=== PATIENT | male | born 1960 | race Two or more races ===

== ENCOUNTER → 2016-07-26 | Outpatient (CLI) | payer OTHER ==
--- NOTE | 2016-07-26 15:51 | CR ---
EXAMINATION: Right shoulder HISTORY: Pain COMPARISON: None TECHNIQUE: 3 views FINDINGS/IMPRESSION: There is no acute osseous abnormality, dislocation, or fracture identified. Mil d glenohumeral and acromioclavicular osteoarthritic changes are noted. There is an os acromiale.
== END ==
LOC: MW.CHORTHO 08:02
PROVIDERS: ATTEND Orthopaedic Surgery
DX: M25.511 Pain in right shoulder (principal); M94.8X9 Other specified disorders of cartilage, unspecified sites
CPT/HCPCS: 73030-26-RT; 73030-RT

== ENCOUNTER 2017-12-08 15:45 | Emergency (ER) | payer BC, OTHER ==
[2017-12-08 16:54] VITALS: BP 138/82
--- NOTE | 2017-12-08 17:18 | EDM.PDOC ---
ED HPI GENERAL MEDICAL PROBLEM - General Chief Complaint: Lower Extremity Injury/Pain Stated Complaint: HIP PAIN ISSUES Time Seen by Provider: 12/08/17 17:06 Source of Information: Reports: Patient History Limitations: Reports: No Limitations - History of Present Illness INITIAL COMMENTS - FREE TEXT/NARRATIVE: HISTORY AND PHYSICAL: History of present illness: Patient is a 57-year-old male who presents to the emergency room with complaints of lumbar back pain that radiates into right hip. He states this has been ongoing for several months. Approximately one year ago he did have a work related injury which did cause some low back and right hip pain. 3-4 months ago he did have a fall in which he reached out and grabbed himself to prevent himself from falling to the ground and his right hip smashed against the wall. Since that time he has intermittent right hip pain that radiates down the glutes. He has increased pain with bearing down when having a bowel movement, sitting for long periods of time or standing for long periods of time. He does have intermittent numbness and tingling to his distal extremities right more so than the left. He states there are periods where he'll be walking and he feels like his right leg is "giving out". He denies any urinary or fecal incontinence. He has been fully ambulatory without difficulty or deficits. Review of systems: As per history of present illness and below otherwise all systems reviewed and negative. Past medical history: As per history of present illness and as reviewed below otherwise noncontributory. Surgical history: As per history of present illness and as reviewed below otherwise noncontributory. Social history: No reported history of drug or alcohol abuse. Family history: As per history of present illness and as reviewed below otherwise noncontributory. Physical exam: General: Well-developed and well-nourished 57-year-old male. Alert and oriented. Nontoxic appearing and in no acute distress. HEENT: Atraumatic, normocephalic, pupils equal and reactive bilaterally, negative for conjunctival pallor or scleral icterus, mucous membranes moist, throat clear, neck supple, nontender, trachea midline. No drooling or trismus noted. No meningeal signs Lungs: Clear to auscultation, breath sounds equal bilaterally, chest nontender. Heart: S1S2, regular rate and rhythm without overt murmur Abdomen: Soft, nondistended, nontender. Negative for masses or hepatosplenomegaly. Negative for costovertebral tenderness. Pelvis: Stable nontender. Genitourinary: Deferred. Rectal: Deferred. C-spine/Back: Pinpoint vertebral tenderness upon palpation. No crepitus, step- offs or obvious deformities. Patient is fully ambulatory with a steady gait. Able to walk on heels and toes without any difficulty. He denies any numbness or tingling to his distal extremities at this time. No urinary or fecal incontinence. Skin: Intact, warm, dry. No lesions or rashes noted. Extremities: Atraumatic, negative for cords or calf pain. Neurovascular unremarkable. Neuro: Awake, alert, oriented. Cranial nerves II through XII unremarkable. Cerebellum unremarkable. Motor and sensory unremarkable throughout. Exam nonfocal. Notes: He should states he did have an injury approximately one year ago which she [facility]. His second injury which occurred 3-4 months ago he has not had any re-evaluation or imaging done. He shouldn't is agreeable to CT of the lumbar spine. Offered him pain medication at this time. He repeatedly tells me that he "does not care for pain meds" and tells me he has pain medications available due to a right shoulder rotator cuff injury. CT of the lumbar spine shows no fracture or any other abnormalities. There are multilevel degenerative spondylosis noted information was shared with the patient. I did offer a Medrol Dosepak along with some pain medication which she declines. He states he just wanted the imaging done today. He will follow-up with his primary care provider in the next 1-2 days. He denies any further questions or concerns at this time. Diagnostics: CT lumbar spine Therapeutics: Declines Impression: Right hip pain Low back pain Plan: 1. Gentle heat and stretching. May benefit from or strengthening/back exercises. 2. Tylenol and/or ibuprofen as needed for pain management. 3. Follow-up with the orthopedic provider or your primary care provider in the next 1-2 days. Return to the ED as needed and as discussed. Definitive disposition and diagnosis as appropriate pending reevaluation and review of above. Right Hip Pain Score (Numeric/FACES): 4 - Related Data Allergies Allergy/AdvReac Type Severity Reaction Status Date / Time Penicillins Allergy Swelling Verified 12/08/17 16:49 Home Meds: Home Meds Aspirin 325 mg PO DAILY 05/22/16 [History] Ibuprofen [Motrin] 200 mg PO ASDIRECTED PRN 05/22/16 [History] Losartan [Cozaar] 50 mg PO DAILY 05/22/16 [History] Past Medical History HEENT History: Reports: None Cardiovascular History: Reports: Hypertension Respiratory History: Reports: None Gastrointestinal History: Reports: None Genitourinary History: Reports: None Musculoskeletal History: Reports: None Neurological History: Reports: None Psychiatric History: Reports: None Endocrine/Metabolic History: Reports: None Hematologic History: Reports: None Immunologic History: Reports: None Oncologic (Cancer) History: Reports: None Dermatologic History: Reports: None - Infectious Disease History Infectious Disease History: Reports: None - Past Surgical History Head Surgeries/Procedures: Reports: None HEENT Surgical History: Reports: None Cardiovascular Surgical History: Reports: None Respiratory Surgical History: Reports: None GI Surgical History: Reports: None Male Surgical History: Reports: None Endocrine Surgical History: Reports: None Neurological Surgical History: Reports: None Musculoskeletal Surgical History: Reports: None Oncologic Surgical History: Reports: None Dermatological Surgical History: Reports: None Social & Family History - Family History Family Medical History: Noncontributory - Tobacco Use Smoking Status *Q: Never Smoker - Caffeine Use Caffeine Use: Reports: None - Recreational Drug Use Recreational Drug Use: No Review of Systems - Review of Systems Review Of Systems: ROS reveals no pertinent complaints other than HPI. ED EXAM, GENERAL - Physical Exam Exam: See Below (See dictation) Course - Vital Signs Last Recorded V/S: Last Vital Signs Temp 98.3 F 12/08/17 16:51 Pulse 96 12/08/17 16:51 Resp 16 12/08/17 16:51 BP 138/82 12/08/17 16:51 Pulse Ox 96 12/08/17 16:51 - Orders/Labs/Meds Orders: Active Orders 24 hr Category Date Time Status Lumbar Spine wo Cont [CT] Stat Exams 12/08/17 17:13 Taken Departure - Departure Time of Disposition: 18:16 Disposition: Home, Self-Care 01 Clinical Impression: Right hip pain Back pain Qualifiers: Back pain location: low back pain Chronicity: chronic Back pain laterality: midline Sciatica presence: without sciatica Qualified Code(s): M54.5 - Low back pain - Discharge Information Instructions: Hip Bursitis, [id number], Back Pain, Adult, [id number] Referrals: PCP,None [Primary Care Provider] - Forms: ED Department Discharge Additional Instructions: The following information is given to patients seen in the emergency department who are being discharged to home. This information is to outline your options for follow-up care. We provide all patients seen in our emergency department with a follow-up referral. The need for follow-up, as well as the timing and circumstances, are variable depending upon the specifics of your emergency department visit. If you don't have a primary care physician on staff, we will provide you with a referral. We always advise you to contact your personal physician following an emergency department visit to inform them of the circumstance of the visit and for follow-up with them and/or the need for any referrals to a consulting specialist. The emergency department will also refer you to a specialist when appropriate. This referral assures that you have the opportunity for follow-up care with a specialist. All of these measure are taken in an effort to provide you with optimal care, which includes your follow-up. Under all circumstances we always encourage you to contact your private physician who remains a resource for coordinating your care. When calling for follow-up care, please make the office aware that this follow-up is from your recent emergency room visit. If for any reason you are refused follow-up, please contact the [facility] Emergency Department at and asked to speak to the emergency department charge nurse. [facility] [address] [place] [id number] 1. Gentle heat and stretching. May benefit from or strengthening/back exercises. 2. Tylenol and/or ibuprofen as needed for pain management. 3. Follow-up with the orthopedic provider or your primary care provider in the next 1-2 days. Return to the ED as needed and as discussed. - My Orders Last 24 Hours: My Active Orders 12/08/17 17:13 Lumbar Spine wo Cont [CT] Stat - Assessment/Plan Last 24 Hours: My Active Orders 12/08/17 17:13 Lumbar Spine wo Cont [CT] Stat
--- NOTE | 2017-12-09 13:21 | CT ---
EXAM DATE: 12/08/17 PATIENT'S AGE: 57 Patient: PEPE STOCK Facility: [place], [place] Site . Site : 1960 Study: CT Spine Lumbar [id number]/12/2018 5:51:00 PM Ordering Physician: Doctor Esquivel Final Report: INDICATION: Back pain. TECHNIQUE: CT lumbar spine without contrast. COMPARISON: X-ray lumbar spine May 22, 2016. FINDINGS: There are bilateral pars defects at L4. Grade 1 spondylolisthesis at L4-5 measures 8 mm. Minimal spondylolisthesis is also present at L2-3 and L5-S1. No fractures. Severe degenerative disc spondylosis is present at L2-3 and L4-5. Remainder of the disc spaces are maintained. Central canal stenosis is present at L2-3. Bilateral foraminal stenosis is present at L4-5. IMPRESSION: No fracture or other acute abnormality. Multilevel degenerative spondylosis is most severe at L2-3 and L4-5. Please note that all CT scans at this facility use dose modulation, iterative reconstruction, and/or weight-based dosing when appropriate to reduce radiation dose to as low as reasonably achievable. Dictated by Juan Carlos White MD @ Dec 08 2017 6:04PM (Electronic Signature) [facility]
== END 2017-12-08 18:31 | disposition home or self-care (01) ==
LOC: MW.ED 15:45
DX: M25.551 Pain in right hip (principal); M54.5 Low back pain; I10 Essential (primary) hypertension; Z88.0 Allergy status to penicillin; Z79.82 Long term (current) use of aspirin; Z79.899 Other long term (current) drug therapy
CPT/HCPCS: 72131; 72131-26; 99283-25

== ENCOUNTER 2019-03-28 15:00 | Emergency (ER) | payer BC ==
[2019-03-28 15:14] VITALS: BP 137/80; PULSE 79
--- NOTE | 2019-03-28 15:26 | EDM.PDOC ---
ED HPI GENERAL MEDICAL PROBLEM - General Chief Complaint: General Stated Complaint: NECK PAIN Time Seen by Provider: 03/28/19 15:01 Source of Information: Reports: Patient History Limitations: Reports: No Limitations - History of Present Illness INITIAL COMMENTS - FREE TEXT/NARRATIVE: HISTORY AND PHYSICAL: History of present illness: Patient is a 58-year-old male presents to the ED today with concern of chronic neck pain since November. Patient states he had an incident in November where he was mowing the grass and got 2 warm and lost consciousness and hit his head and hurt his neck. Patient states he was seen and evaluated in the clinic back in November and had a head scan as well as a neck scan. Patient states he was referred to neurology for concern of "narrowing in his neck". Patient states he followed up with a neurologist in [place] who stated that patient needs surgery in order to alleviate his neck discomfort. Patient states he is currently in the process of getting scheduled for surgery but is having issues with workmen's, not wanting to approve of the surgery. Patient has an appointment in 2 days with his primary care provider Dr. Soni for pain management for the neck pain in the meantime of waiting for surgery. Any new or change in pain or any new injury from prior. Patient denies any other symptoms or concerns. Patient denies fever, chills, chest pain, shortness of breath, or cough. Denies headache, change in vision, syncope, or near syncope. Denies nausea, vomiting, abdominal pain, diarrhea, constipation, or dysuria. Has not noted any blood in urine or stool. Patient has been eating and drinking appropriately. Review of systems: As per history of present illness and below otherwise all systems reviewed and negative. Past medical history: As per history of present illness and as reviewed below otherwise noncontributory. Surgical history: As per history of present illness and as reviewed below otherwise noncontributory. Social history: See social history for further information Family history: As per history of present illness and as reviewed below otherwise noncontributory. Physical exam: General: Patient is alert, oriented, and in no acute distress. Patient sitting comfortably on exam table. HEENT: Atraumatic, normocephalic, pupils equal and reactive bilaterally, negative for conjunctival pallor or scleral icterus, mucous membranes moist, TMs normal bilaterally, throat clear, neck supple, nontender, trachea midline. No drooling or trismus noted. No meningeal signs. No hot potato voice noted. Lungs: Clear to auscultation, breath sounds equal bilaterally, chest nontender. Heart: S1S2, regular rate and rhythm without overt murmur Abdomen: Soft, nondistended, nontender. Negative for masses or hepatosplenomegaly. Negative for costovertebral tenderness. Pelvis: Stable nontender. Genitourinary: Deferred. Rectal: Deferred. Skin: Intact, warm, dry. No lesions or rashes noted. Extremities: Atraumatic, negative for cords or calf pain. Neurovascular unremarkable. Neuro: Awake, alert, oriented. Cranial nerves II through XII unremarkable. Cerebellum unremarkable. Motor and sensory unremarkable throughout. Exam nonfocal. Notes: Discussed the importance for follow-up with the primary care provider. Voices understanding and is agreeable to plan of care. Denies any further questions or concerns at this time. Diagnostics: None Therapeutics: None Prescription: Diclofenac Impression: Chronic neck pain Encounter for pain management Plan: 1. Take medication as prescribed. You can also use Tylenol as directed for pain and discomfort. 2. You can apply heat 15 minutes on 15 minutes off as directed for pain and discomfort. 3. Follow up with your primary care provider as scheduled and as discussed. Return to the ED as needed and as discussed. Definitive disposition and diagnosis as appropriate pending reevaluation and review of above. neck Pain Score (Numeric/FACES): 10 - Related Data Allergies Allergy/AdvReac Type Severity Reaction Status Date / Time Penicillins Allergy Swelling Verified 03/28/19 15:10 Home Meds: Home Meds Aspirin 325 mg PO DAILY 05/22/16 [History] Ibuprofen [Motrin] 200 mg PO ASDIRECTED PRN 05/22/16 [History] Losartan [Cozaar] 50 mg PO DAILY 05/22/16 [History] Past Medical History HEENT History: Reports: None Cardiovascular History: Reports: Hypertension Respiratory History: Reports: None Gastrointestinal History: Reports: None Genitourinary History: Reports: None Musculoskeletal History: Reports: None Neurological History: Reports: None Psychiatric History: Reports: None Endocrine/Metabolic History: Reports: None Hematologic History: Reports: None Immunologic History: Reports: None Oncologic (Cancer) History: Reports: None Dermatologic History: Reports: None - Infectious Disease History Infectious Disease History: Reports: None - Past Surgical History Head Surgeries/Procedures: Reports: None HEENT Surgical History: Reports: None Cardiovascular Surgical History: Reports: None Respiratory Surgical History: Reports: None GI Surgical History: Reports: None Male Surgical History: Reports: None Endocrine Surgical History: Reports: None Neurological Surgical History: Reports: None Musculoskeletal Surgical History: Reports: None Oncologic Surgical History: Reports: None Dermatological Surgical History: Reports: None Social & Family History - Family History Family Medical History: Noncontributory - Tobacco Use Smoking Status *Q: Never Smoker Second Hand Smoke Exposure: No - Caffeine Use Caffeine Use: Reports: None - Recreational Drug Use Recreational Drug Use: No ED ROS GENERAL - Review of Systems Review Of Systems: ROS reveals no pertinent complaints other than HPI. ED EXAM, GENERAL - Physical Exam Exam: See Below (See dictation) Course - Vital Signs Last Recorded V/S: Last Vital Signs Temp 96.3 F 03/28/19 15:08 Pulse 79 03/28/19 15:08 Resp 18 03/28/19 15:08 BP 137/80 03/28/19 15:08 Pulse Ox 96 03/28/19 15:08 Departure - Departure Time of Disposition: 15:23 Disposition: Home, Self-Care 01 Clinical Impression: Chronic neck pain, Encounter for pain management - Discharge Information Referrals: Genesis Soni DO [Primary Care Provider] - Additional Instructions: The following information is given to patients seen in the emergency department who are being discharged to home. This information is to outline your options for follow-up care. We provide all patients seen in our emergency department with a follow-up referral. The need for follow-up, as well as the timing and circumstances, are variable depending upon the specifics of your emergency department visit. If you don't have a primary care physician on staff, we will provide you with a referral. We always advise you to contact your personal physician following an emergency department visit to inform them of the circumstance of the visit and for follow-up with them and/or the need for any referrals to a consulting specialist. The emergency department will also refer you to a specialist when appropriate. This referral assures that you have the opportunity for follow-up care with a specialist. All of these measure are taken in an effort to provide you with optimal care, which includes your follow-up. Under all circumstances we always encourage you to contact your private physician who remains a resource for coordinating your care. When calling for follow-up care, please make the office aware that this follow-up is from your recent emergency room visit. If for any reason you are refused follow-up, please contact the [facility] Emergency Department at and asked to speak to the emergency department charge nurse. [facility] [address] [place] [id number] [facility] [address] [place] [id number] 1. Take medication as prescribed. You can also use Tylenol as directed for pain and discomfort. 2. You can apply heat 15 minutes on 15 minutes off as directed for pain and discomfort. 3. Follow up with your primary care provider as scheduled and as discussed. Return to the ED as needed and as discussed.
== END 2019-03-28 15:43 | disposition home or self-care (01) ==
LOC: MW.ED 15:00
DX: G89.29 Other chronic pain (principal); M54.2 Cervicalgia; I10 Essential (primary) hypertension; Z88.0 Allergy status to penicillin; Z79.82 Long term (current) use of aspirin; Z79.899 Other long term (current) drug therapy
CPT/HCPCS: 99283

== ENCOUNTER 2019-05-30 10:09 | Emergency (ER) | payer BC ==
[2019-05-30 10:26] VITALS: BP 128/79; PULSE 86
--- NOTE | 2019-05-30 10:29 | EDM.PDOC ---
ED HPI GENERAL MEDICAL PROBLEM - General Chief Complaint: Upper Extremity Injury/Pain Stated Complaint: PAIN IN SHOULDER Time Seen by Provider: 05/30/19 10:28 Source of Information: Reports: Patient History Limitations: Reports: No Limitations - History of Present Illness INITIAL COMMENTS - FREE TEXT/NARRATIVE: HISTORY AND PHYSICAL: History of present illness: Patient is a 59-year-old male presents to the ED with multiple complaints. He states today he his having severe left shoulder pain. He reports history of neck injury 6 months ago and states he is suppose to have surgery for this but can not get it covered by workmans comp. He states pain radiated from his neck to his left shoulder. He denies new or recent injury or trauma. He denies distal numbness or tingling. He also states he has a sore throat. Reports subjective fever last night. Denies cough, nausea, vomiting, abdominal pain, chest pain, shortness of breath. He also notes a crack in his skin from dry hands on his right pointer finger. Denies significant past medical history. Review of systems: As per history of present illness and below otherwise all systems reviewed and negative. Past medical history: As per history of present illness and as reviewed below otherwise noncontributory. Surgical history: As per history of present illness and as reviewed below otherwise noncontributory. Social history: No reported history of drug or alcohol abuse. Family history: As per history of present illness and as reviewed below otherwise noncontributory. Physical exam: General: Patient sitting comfortably in no acute distress and nontoxic appearing HEENT: Atraumatic, normocephalic, pupils reactive, negative for conjunctival pallor or scleral icterus, mucous membranes moist, throat clear, neck supple, nontender, trachea midline. No meningeal signs. Lungs: Clear to auscultation, breath sounds equal bilaterally, chest nontender. Heart: S1S2, regular, negative for clicks, rubs, or overt murmur. Abdomen: Soft, nondistended, nontender. Negative for masses or hepatosplenomegaly. Negative for costovertebral tenderness. No rigidity, rebound , guarding. Pelvis: Stable nontender. Genitourinary: Deferred. Rectal: Deferred. Spine: No vertebral tenderness or step offs to palpation. Left cervical paraspinal tenderness to palpation. Extremities: Pain to palpation along left supraspinatus. Pain with abduction and internal rotation of the shoulder. ROM limited due to pain. Dry skin to hands, there is a fissure along the left pointer finger on the alves aspect at the DIP joint. Atraumatic, negative for cords or calf pain. Neurovascular unremarkable. Neuro: Awake, alert, oriented. Cranial nerves II through XII unremarkable. Cerebellum unremarkable. Motor and sensory unremarkable throughout. Exam nonfocal. Notes: Diagnostics: Left shoulder x-ray, rapid strep, influenza Therapeutics: Declined Toradol Declines sling Prescriptions: Keflex Declines diclofenac Impression: Left shoulder pain, right finger cellulitis, viral pharyngitis Definitive disposition and diagnosis as appropriate pending reevaluation and review of above. Shoulder Pain Score (Numeric/FACES): 10 - Related Data Allergies Allergy/AdvReac Type Severity Reaction Status Date / Time Penicillins Allergy Swelling Verified 05/30/19 10:26 Home Meds: Home Meds Aspirin 325 mg PO DAILY 05/22/16 [History] Ibuprofen [Motrin] 200 mg PO ASDIRECTED PRN 05/22/16 [History] Losartan [Cozaar] 50 mg PO DAILY 05/22/16 [History] Past Medical History HEENT History: Reports: None Cardiovascular History: Reports: Hypertension Respiratory History: Reports: None Gastrointestinal History: Reports: None Genitourinary History: Reports: None Musculoskeletal History: Reports: None Neurological History: Reports: None Psychiatric History: Reports: None Endocrine/Metabolic History: Reports: None Hematologic History: Reports: None Immunologic History: Reports: None Oncologic (Cancer) History: Reports: None Dermatologic History: Reports: None - Infectious Disease History Infectious Disease History: Reports: None - Past Surgical History Head Surgeries/Procedures: Reports: None HEENT Surgical History: Reports: None Cardiovascular Surgical History: Reports: None Respiratory Surgical History: Reports: None GI Surgical History: Reports: None Male Surgical History: Reports: None Endocrine Surgical History: Reports: None Neurological Surgical History: Reports: None Musculoskeletal Surgical History: Reports: None Oncologic Surgical History: Reports: None Dermatological Surgical History: Reports: None Social & Family History - Family History Family Medical History: Noncontributory - Caffeine Use Caffeine Use: Reports: None Review of Systems - Review of Systems Review Of Systems: Comprehensive ROS is negative, except as noted in HPI. ED EXAM, GENERAL - Physical Exam Exam: See Below (see dictation) Course - Vital Signs Last Recorded V/S: Last Vital Signs Temp 96.7 F 05/30/19 10:22 Pulse 86 05/30/19 10:22 Resp 16 05/30/19 10:22 BP 128/79 05/30/19 10:22 Pulse Ox 95 05/30/19 10:22 - Orders/Labs/Meds Orders: Active Orders 24 hr Category Date Time Status CULTURE STREP A CONFIRMATION [] Stat Lab 05/30/19 11:09 Results STREP SCRN A RAPID W CULT CONF [RM] Stat Lab 05/30/19 11:09 Results Departure - Departure Time of Disposition: 11:46 Disposition: Home, Self-Care 01 Condition: Good Clinical Impression: Left shoulder pain, Viral pharyngitis, Cellulitis of right finger - Discharge Information Referrals: PCP,Unknown [Primary Care Provider] - Forms: ED Department Discharge Additional Instructions: The following information is given to patients seen in the emergency department who are being discharged to home. This information is to outline your options for follow-up care. We provide all patients seen in our emergency department with a follow-up referral. The need for follow-up, as well as the timing and circumstances, are variable depending upon the specifics of your emergency department visit. If you don't have a primary care physician on staff, we will provide you with a referral. We always advise you to contact your personal physician following an emergency department visit to inform them of the circumstance of the visit and for follow-up with them and/or the need for any referrals to a consulting specialist. The emergency department will also refer you to a specialist when appropriate. This referral assures that you have the opportunity for follow-up care with a specialist. All of these measure are taken in an effort to provide you with optimal care, which includes your follow-up. Under all circumstances we always encourage you to contact your private physician who remains a resource for coordinating your care. When calling for follow-up care, please make the office aware that this follow-up is from your recent emergency room visit. If for any reason you are refused follow-up, please contact the [facility] Emergency Department at and asked to speak to the emergency department charge nurse. [facility] [address] [place] [id number] [address] [address] [facility] [address] [place] [address], [address] [place] [address] Take antibiotic as instructed Follow up with primary care provider and orthopedics, please call number provided to schedule an appoint Return to ED as needed as discussed Sepsis Event Note - Evaluation Sepsis Screening Result: No Definite Risk - Focused Exam Vital Signs: Vital Signs Temp Pulse Resp BP Pulse Ox 05/30/19 10:22 96.7 F 86 16 128/79 95 Date Exam was Performed: 05/30/19 Time Exam was Performed: 11:53 - My Orders Last 24 Hours: My Active Orders 05/30/19 11:09 CULTURE STREP A CONFIRMATION [RM] Stat STREP SCRN A RAPID W CULT CONF [RM] Stat - Assessment/Plan Last 24 Hours: My Active Orders 05/30/19 11:09 CULTURE STREP A CONFIRMATION [RM] Stat STREP SCRN A RAPID W CULT CONF [RM] Stat
--- NOTE | 2019-05-30 11:15 | CR ---
INDICATION: Shoulder pain TECHNIQUE: Shoulder radiograph 3 views left COMPARISON: None FINDINGS: Bone: No acute fractures or aggressive bone lesions are identified. Joint: The glenohumeral joint is unremarkable. The acromioclavicular joint is unremarkable. Soft tissue: Unremarkable. The visualized hemithorax is unremarkable in appearance. No radiopaque foreign bodies are seen. IMPRESSION: 1. No acute osseous injuries or abnormalities are noted. Dictated by: Chino Marie MD @ 05/30/2019 11:13:07 (Electronically Signed)
== END 2019-05-30 12:10 | disposition home or self-care (01) ==
LOC: MW.ED 10:09
DX: M25.512 Pain in left shoulder (principal); J02.8 Acute pharyngitis due to other specified organisms; L03.011 Cellulitis of right finger; I10 Essential (primary) hypertension; Z79.899 Other long term (current) drug therapy; Z88.0 Allergy status to penicillin
CPT/HCPCS: 73030-26-LT; 73030-LT; 87081; 87804; 87880-QW; 99283; 99283-25